=== PATIENT | male | born 1955 | race African-American/Black ===

== ENCOUNTER 2024-02-07 10:42 | Emergency (ER) | payer OTHER ==
[~2024-02-07] VITALS: Ht 167.6 cm; Wt 64.0 kg
[2024-02-07 10:46] VITALS: O2SAT 100
[2024-02-07 15:32] LABS: BASOPHILS % 0.7 % (0.0-2.0); DIFFERENTIAL COMMENT 0; EOSINOPHILS % 1.8 % (0.0-5.0); HEMATOCRIT. 44.1 % (42.0-52.0); HEMOGLOBIN. 15.1 g/dL (14.0-18.0); LYMPHOCYTES % 28.7 % (20.0-50.0); MEAN CORPUSCULAR HEMOGLOBIN 31.5 pg (28.0-32.0); MEAN CORPUSCULAR HGB CONC 34.2 g/dL (31.0-37.0); MEAN CORPUSCULAR VOLUME 92.1 fL (80.0-94.0); MEAN PLATELET VOLUME 8.6 fl (7.4-10.4); MONOCYTES % 6.5 % (2.0-8.0); NEUTROPHILS % 62.3 % (40.0-76.0); PLATELET 222 x1000/uL (130-400); RED BLOOD CELL COUNT 4.79 mill/uL (4.7-6.1); RED CELL DISTRIBUTION WIDTH 14.5 % (11.6-14.6); WHITE BLOOD COUNT 6.6 x1000/uL (4.5-11.0)
[2024-02-07 15:35] LABS: CHLORIDE 111 mEq/L (98-107); POTASSIUM 3.9 mEq/L (3.5-5.1); SODIUM 141 mEq/L (136-145)
[2024-02-07 15:36] LABS: CALCIUM 10.2 mg/dL (8.7-10.4); CARBON DIOXIDE 24 mEq/L (21-32)
[2024-02-07 15:41] LABS: GLUCOSE 76 mg/dL (70-105); UREA NITROGEN BLOOD 17 mg/dL (9-23)
[2024-02-07 18:45] LABS: CLARITY URINE CLOUDY (CLEAR); COLOR URINE YELLOW (YELLOW); GLUCOSE URINE NEGATIVE (NEGATIVE); KETONES URINE 1+ (NEGATIVE); LEUKOCYTE ESTERASE URINE 2+ (NEGATIVE); NITRITE URINE NEGATIVE (NEGATIVE); OCCULT BLOOD URINE 3+ (NEGATIVE); PH URINE 7.5 (4.5-8.0); PROTEIN URINE 1+ (NEGATIVE); SPECIFIC GRAVITY URINE 1.021 (1.005-1.030); UROBILINOGEN URINE 0.2 E.U./dL (0.2-1.0)
[2024-02-07] MEDS ORDERED: TAMS-11 MT (19:03)
[2024-02-07] MEDS ORDERED: TERA1CAP53 MT (19:03)
[2024-02-07] MEDS ORDERED: SULF1TAB48 MT (19:04)
[2024-02-07 19:24] LABS: BACTERIA URINE 2+; SQUAMOUS EPITHELIAL CELL URINE FEW /lpf (RARE/1+)
[2024-02-07 19:25] LABS: RBC URINE 15-25 /hpf (0-2); TRIPLE PHOSPHATE CRYSTAL URINE 1+ /lpf
[2024-02-07 20:24] VITALS: BP 138/69; PULSE 78; RESP 19; TEMP 98.6
== END 2024-02-07 21:11 | disposition home or self-care (01) ==
LOC: ER 10:42
DX: R33.9 Retention of urine, unspecified (principal); N19 Unspecified kidney failure; N30.00 Acute cystitis without hematuria; I10 Essential (primary) hypertension
CPT/HCPCS: 36415; 80048; 81003; 85025; 99283

== ENCOUNTER 2024-02-09 07:49 | Emergency (ER) | payer OTHER ==
[~2024-02-09] VITALS: Ht 170.2 cm; Wt 70.6 kg
[~2024-02-09 07:49] MED LIST: SULF1TAB48 MT; TAMS-11 MT; TERA1CAP53 MT
[2024-02-09 08:01] VITALS: O2SAT 98
[2024-02-09 13:20] VITALS: BP 160/79; PULSE 66; RESP 18; TEMP 98.2
== END 2024-02-09 13:20 | disposition home or self-care (01) ==
LOC: ER 09:23
DX: R33.9 Retention of urine, unspecified (principal); I10 Essential (primary) hypertension; Z98.890 Other specified postprocedural states
CPT/HCPCS: 99281